=== PATIENT | male | born 1995 | race Caucasian/White ===

== ENCOUNTER 2018-09-18 21:04 | Emergency (ER) | payer OTHER ==
[2018-09-18] MEDS ORDERED: IBUPROFEN 600 MG TAB PO ONE (21:59)
[2018-09-18] MEDS ORDERED: HYDROCOD/APAP 5/325 PREPACK#6 BTL TAKEHOME ONE (22:01)
--- NOTE | 2018-09-18 22:01 | EDPHY ---
General Time Seen by Provider: 09/18/18 21:23 Narrative: CLINICAL IMPRESSION: Left shoulder sprain ASSESSMENT/PLAN: 23-year-old male presents to the emergency department with left shoulder pain after falling directly onto the shoulder skiing today. He did not hit his head and denies neck, back and chest wall pain. X-rays of the shoulder read by Radiology suggestive of an AC joint sprain. There is no clinical evidence to suggest AC separation, dislocation or fracture. Distal neurovascular exam and joint mobility is intact. No midline neck or back pain. No chest wall pain. Patient was placed in a sling and referred to Orthopedics. Rice treatment discussed. Warning signs return to ED sooner outlined and discharge. DIFFERENTIAL DX: Differential includes but not limited to acute fracture, strain/sprain, joint dislocation, soft tissue contusion ED PROCEDURES: Procedure: Splint placement. A sling splint was applied to left arm by echocardiography radiology technologist, supervised by myself. After application of the splint I returned and re-examined the patient. The splint was adequately immobilizing the joint and distal to the splint the patient's circulation and sensation was intact. ED COURSE: X-rays interpreted by myself at 9:55 p.m.: No evidence of acute fracture, obvious AC separation, joint dislocation, scapular fracture or humeral head fracture. CHIEF COMPLAINT: Left shoulder pain HPI: 23-year-old [id number] male presents to the emergency department with left shoulder pain after he fell directly onto the left shoulder while skiing today. Patient was able to get himself [place] the [place] but came directly to the ED after smoking marijuana did not help his pain. He did not take ibuprofen or Tylenol. No prior shoulder injury or surgery. No numbness or tingling to the hand or fingers. No elbow wrist or hand pain. No back pain, neck pain and he did not hit his head. PAST MEDICAL HISTORY: None reported Pertinent Past Surgical History: None reported Social History: Smokes REVIEW OF SYSTEMS: All other systems negative Constitutional: No fever, no chills Musculoskeletal: No deformity, + joint pain Skin: No rashes, color change or open wounds. Neurological: No sensory loss or weakness. PHYSICAL EXAM: General Appearance: Alert, oriented, appropriate for age, cooperative, well hydrated, non-toxic appearing, appears mildly uncomfortable no hypoxia. Neurological: Alert and oriented x 3, normal sensation and strength of extremities Skin: Warm, dry, no rashes, no nodules on palpation. Musculoskeletal: Limited range of motion of left shoulder due to pain. Intact range of motion of elbow wrist and hand. Heel Painter strength 5/5. Distal neurovascular exam intact. Intact sensation over the lateral deltoid. No pain to palpation of the scapula. No midline neck or back pain. No obvious anterior dislocation or AC separation. MEDICAL DECISION MAKING: Patient was seen independently. Secondary supervising physician at time of evaluation was Dr. Ramirez. Diagnosis: Left shoulder strain. New, requires workup Summary: See assessment and plan for summary of ED visit Independent visualization of images, tracing, or specimens yes. Patient Progress: Improved, stable for discharge. - Diagnostics Imaging Results: Imaging Impressions Shoulder X-Ray 09/18/18 21:09 Impression: Mild left acromioclavicular joint sprain. - History Smoking Status: Never smoked - Objective Vital Signs: Initial Vital Signs Temperature (C) 36.8 C 09/18/18 21:06 Heart Rate 95 09/18/18 21:06 Respiratory Rate 16 09/18/18 21:06 Blood Pressure 150/97 H 09/18/18 21:06 O2 Sat (%) 97 09/18/18 21:06 O2 Delivery Mode Room Air Allergies/Adverse Reactions: No Known Allergies Allergy (Unverified 09/18/18 21:07) Home Medications: Medication Instructions Recorded NK [No Known Home Meds] 09/18/18 Medications Given: Discontinued Medications Hydrocodone Bitart/Acetaminophen ([place] 5/325mg Prepack#6) 1 btl TAKEHOME EDNOW ONE Stop: 09/18/18 22:02 Last Admin: 09/18/18 22:22 Dose: 1 btl Ibuprofen (Motrin) 600 mg PO EDNOW ONE Stop: 09/18/18 22:00 Last Admin: 09/18/18 22:21 Dose: 600 mg Departure - Departure Disposition: Home, Routine, Self-Care Clinical Impression: Left shoulder strain Qualifiers: Encounter type: initial encounter Qualified Code(s): S46.912A - Strain of unspecified muscle, fascia and tendon at shoulder and upper arm level, left arm , initial encounter Condition: Good Instructions: Narcotic Safety (ED), Shoulder Sprain (ED) Additional Instructions: DISCHARGE INSTRUCTIONS FROM YOUR DOCTOR Thank you for visiting our emergency department today. You were treated by a physician surgeon assistant today and your case was reviewed with our ED Attending physician. Please keep in mind that discharge from the emergency department does not mean that there is nothing wrong - it simply means that we have not identified an emergency condition that requires further evaluation or treatment in the hospital. You should always plan to follow up with primary care for re- evaluation of your condition in the next 2-3 days. If you have been referred to a specialist, please call as soon as possible (today or tomorrow) to schedule your follow up appointment at the appropriate time. X-RAYS OF YOUR SHOULDER WERE READ BY THE RADIOLOGIST SHOWING NO EVIDENCE OF FRACTURE, DISLOCATION OR AC JOINT SEPARATION HOWEVER HE DID INDICATE THAT YOU MAY HAVE A STRAIN OVER THE AC JOINT. YOUR ARM WAS PLACED IN A SLING. USE IBUPROFEN FOR PAIN CONTROL. A TAKE-HOME PACK OF NORCO WAS GIVEN FOR BREAKTHROUGH PAIN. PLEASE CONTACT ORTHOPEDICS FOR FOLLOW-UP. A REFERRAL WAS GIVEN. RETURN TO ED FOR SEVERE PAIN, SWELLING OF THE ARM, LOSS OF SENSATION TO HAND OR FINGERS, OR ANY OTHER CONCERN. People present with illnesses and injuries in different ways, and it is always possible that we have missed something. You may always return for re-evaluation if symptoms worsen or if they are not improving or if you develop new/different symptoms. Again, thank you for choosing our emergency department. We hope that you feel better. Referrals: NONE *PRIMARY CARE P,. [Primary Care Provider] - As per Instructions Linden Ortega MD [Medical Doctor] - 2-3 days, if not improved
[2018-09-18 22:21] VITALS: BP 136/74
== END 2018-09-18 22:30 | disposition home or self-care (01) ==
DX: S46.912A Strain of unspecified muscle, fascia and tendon at shoulder and upper arm level, left arm, initial encounter (principal); V00.321A Fall from snow-skis, initial encounter; Y92.828 Other wilderness area as the place of occurrence of the external cause; Y93.23 Activity, snow (alpine) (downhill) skiing, snowboarding, sledding, tobogganing and snow tubing